=== PATIENT | female | born 1960 | race Caucasian/White ===

== ENCOUNTER 2024-11-07 10:21 | Emergency (ER) | payer OTHER ==
[~2024-11-07] VITALS: Ht 160 cm; Wt 71.7 kg
[2024-11-07] MEDS ORDERED: MAGNESIUM OXID500 MG PO (11:09)
[2024-11-07] MEDS ORDERED: ZINC220 PO (11:09)
[2024-11-07] MEDS ORDERED: PHOSPHATE (11:10)
[2024-11-07] MEDS ORDERED: METTREX2.5 PO (11:10)
[2024-11-07] MEDS ORDERED: VITAMIN B121000 MCG PO (11:10)
[2024-11-07] MEDS ORDERED: AIRSUPRA 90-810.7 GM INH (11:11)
[2024-11-07] MEDS ORDERED: ULTRA-LIGHT RO1 EACH UD (11:35)
[2024-11-07] MEDS ORDERED: HYDR1TAB94 PO (11:35)
== END 2024-11-07 12:03 | disposition home or self-care (01) ==
LOC: ER 10:21
DX: S82.451A Displaced comminuted fracture of shaft of right fibula, initial encounter for closed fracture (principal); S93.402A Sprain of unspecified ligament of left ankle, initial encounter; X50.1XXA Overexertion from prolonged static or awkward postures, initial encounter; J44.9 Chronic obstructive pulmonary disease, unspecified
CPT/HCPCS: 29515; 73590; 73610; 99283-25